=== PATIENT | male | born 1950 | race Caucasian/White ===

== ENCOUNTER 2016-09-19 15:52 | Emergency (ER) | payer MEDICARE, OTHER ==
[~2016-09-19] VITALS: Ht 182.9 cm; Wt 83.6 kg
[2016-09-19] MEDS ORDERED: FLONASE NASAL50 MCG (16:32)
[2016-09-19] MEDS ORDERED: TAMSULOSIN0.4 MG PO (16:32)
[2016-09-19] MEDS ORDERED: VENTOLIN HFA IN (16:33)
[2016-09-19] MEDS ORDERED: SIMVASTATIN20 MG PO (16:33)
[2016-09-19] MEDS ORDERED: CETIRIZINE10 MG PO (16:34)
[2016-09-19] MEDS ORDERED: VICODIN1 TA1 PO (16:35)
[2016-09-19] MEDS ORDERED: TRAMADOL HCL50 MG PO (16:36)
[2016-09-19] MEDS ORDERED: [UNRECOGNIZED DRUG - OTHER] PO (16:37)
[2016-09-19] MEDS ORDERED: RESTASIS0.05 % OU (16:37)
[2016-09-19] MEDS ORDERED: VITAMIN D-31000 UNI1 PO (16:38)
[2016-09-19] MEDS ORDERED: ASPIRIN EC81 MG PO (16:38)
[2016-09-19] MEDS ORDERED: MULTIVITAMI1 PO (16:38)
[2016-09-19 18:00] LABS: URINE BILIRUBIN - DIPSTICK NEGATIVE (NEGATIVE); URINE BLOOD DIPSTICK NEGATIVE (NEGATIVE); URINE CLARITY CLEAR; URINE COLOR YELLOW; URINE GLUCOSE - DIPSTICK NEGATIVE (NEGATIVE); URINE KETONE NEGATIVE (NEGATIVE); URINE LEUK ESTERASE NEGATIVE (NEGATIVE); URINE NITRITE - DIPSTICK NEGATIVE (Negative); URINE PROTEIN - DIPSTICK NEGATIVE (NEG-TRACE); URINE UROBILINOGEN - DIPSTICK 0.2 E.U./dL (0.2)
[2016-09-19 18:21] LABS: HEMATOCRIT 37.2 % (39.0-50.0); HEMOGLOBIN 13.1 g/dl (14.0-18.0); IMMATURE GRANULOCYTES 0.2 % (0.0-1.0); MEAN CELL VOLUME 82.9 fL CALC (80.0-100.0); MEAN CORPUSCULAR HGB 29.2 pG CALC (26.0-32.0); MEAN CORPUSCULAR HGB CONC 35.2 g/L CALC (32.0-36.0); NEUT# 2.84 thou/uL (1.82-7.42); RED BLOOD COUNT 4.49 mill/uL (4.70-6.10); RED CELL DISTRI WIDTH 12.2 % (11.5-15.5)
[2016-09-19 18:40] LABS: ALBUMIN 4.2 g/dL (3.2-5.0); ALKALINE PHOSPHATASE 88 u/l (38-126); ANION GAP 14 (6-22 (CALC)); BILIRUBIN, TOTAL 0.5 mg/dL (0.0-1.4); BUN 15 mg/dL (8-23); BUN/CREATININE RATIO 18 (12-20 (CALC)); CALCIUM 8.8 mg/dL (8.4-10.2); CARBON DIOXIDE 29 mmol/l (22-30); CHLORIDE 103 mmol/l (95-108); CREATININE 0.8 mg/dL (0.7-1.3); GFR > 60 ML/MIN (>=60 (CALC)); GFR FOR AFR.AMER. > 60 ML/MIN (>=60 (CALC)); GLUCOSE 89 mg/dL (82-115); POTASSIUM 4.1 mmol/l (3.5-5.1); SGOT/AST 26 u/l (19-48); SGPT/ALT 39 u/l (11-66); SODIUM 143 mmol/l (137-146); TOTAL PROTEIN 7.1 g/dL (6.3-8.2)
[2016-09-19 18:50] LABS: MYOGLOBIN 32 ng/mL (0 - 121)
[2016-09-19 19:13] VITALS: BP 138/84
== END 2016-09-19 19:18 | disposition home or self-care (01) ==
LOC: ED 15:52
PROVIDERS: Emergency Medicine
DX: R53.1 Weakness (principal); R07.0 Pain in throat; R00.1 Bradycardia, unspecified; R06.02 Shortness of breath